=== PATIENT | male | born 1990 | race Caucasian/White ===

== ENCOUNTER 2022-07-21 06:40 | Emergency (ER) | payer MEDICAID ==
[~2022-07-21] VITALS: Ht 170.2 cm; Wt 70.8 kg
[2022-07-21 06:46] VITALS: BP 145/92
--- NOTE | 2022-07-21 06:47 | NUR ---
Dr. Tipton examining patient.
--- NOTE | 2022-07-21 06:48 | NUR ---
PT YADIEL ALS. TAKEN TO BED 9
[2022-07-21] MEDS: NACL 0.9% 1,000 ML IV ONE ×2 (07:18→07:43)
--- NOTE | 2022-07-21 07:18 | NUR ---
PT CALM AND RESTING. 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
--- NOTE | 2022-07-21 07:26 | NUR ---
Change of shift report given to AM shift nurse Rory SIMONS. AM shift nurse Rory SIMONS verbalized understanding of report, no further questions.
[2022-07-21 07:46] LABS: BASOPHILS # (AUTO) 0.1 K/uL (0.00-0.22); BASOPHILS % (AUTO) 0.9 % (0.0-2.0); EOSINOPHILS # (AUTO) 0.4 K/uL (0-0.4); EOSINOPHILS % (AUTO) 5.3 % (0.0-4.0); HEMATOCRIT 35.2 % (36-52); HEMOGLOBIN 12.4 g/dL (12.0-18.0); LYMPHOCYTES # (AUTO) 2.6 K/uL (2.0-11.5); LYMPHOCYTES % (AUTO) 32.2 % (20.5-51.1); MEAN CORPUSCULAR HEMOGLOBIN 30 pg (27-31); MEAN CORPUSCULAR HGB CONC 35 g/dL (33-37); MEAN CORPUSCULAR VOLUME 83.9 fL (80-94); MONOCYTES # (AUTO) 0.5 K/uL (0.8-1.0); MONOCYTES % (AUTO) 5.8 % (1.7-9.3); NEUTROPHILS # (AUTO) 4.5 K/uL (1.8-7.7); NEUTROPHILS % (AUTO) 55.8 % (42.2-75.2); PLATELET COUNT (AUTO) 307 K/uL (140-450); RED CELL DISTRIBUTION WIDTH 13.1 % (11.6-13.7); WHITE BLOOD COUNT (AUTO) 8.1 K/uL (4.8-10.8)
[2022-07-21 08:00] LABS: ALBUMIN 3.7 g/dL (3.4-5.0); ANION GAP 8.9 (8-16); ASPARTATE AMINOTRANSFERASE 34 U/L (15-37); CARBON DIOXIDE 30.5 mmol/L (21-32); CHLORIDE 103 mmol/L (98-107); CREATININE 0.7 mg/dL (0.6-1.3); GFR ARICAN-AMERICAN 170 mL/min (>90); GLUCOSE 127 mg/dL (74-106); POTASSIUM 3.4 mmol/L (3.5-5.1); SODIUM SERUM 139 mmol/L (136-145); TOTAL BILIRUBIN 0.5 mg/dL (0.0-1.0); UREA NITROGEN, BLOOD 11 mg/dL (7-18)
[2022-07-21 08:03] LABS: SALICYLATE < 2.8 mg/dL (2.8-20.0)
[2022-07-21 08:04] LABS: ACETAMINOPHEN < 0.5 ug/ml (10-30)
[2022-07-21] MEDS ORDERED: NALO4SPR NS (09:07)
[2022-07-21 09:15] VITALS: BP 132/78
== END 2022-07-21 09:15 | disposition home or self-care (01) ==
LOC: MED 06:40
DX: F11.23 Opioid dependence with withdrawal (principal); T40.411A Poisoning by fentanyl or fentanyl analogs, accidental (unintentional), initial encounter; Y92.89 Other specified places as the place of occurrence of the external cause
CPT/HCPCS: 36415; 80053; 85025; 93005; 99284; G0480; G0482